=== PATIENT | male | born 1980 | race Caucasian/White ===

== ENCOUNTER 2016-08-21 19:06 | Emergency (ER) | payer SELFPAY ==
--- NOTE | 2016-08-21 19:08 | EDPHY ---
HPI/HX/ROS/PE/MDM Narrative: CHIEF COMPLAINT: Intoxication HPI: This patient is an intoxicated 36-year-old male arriving by EMS with [employer] after he was found passed out on the toilet at [facility]. [employer] reports that he was confused and unable to answer simple questions upon their arrival. Per EMS, he has been somnolent in transport but responsive to commands. When asked what substances he consumed tonight, he does not provide a response. Further history is unobtainable secondary to the patient's intoxicated condition. REVIEW OF SYSTEMS: ROS is unobtainable secondary to the patient's intoxicated condition. PMH: Non-contributory. SOCIAL HISTORY: Non-contributory. PHYSICAL EXAM: General:Patient is drowsy, in no acute distress. ENT:Pupils 6mm bilaterally. ENT inspection normal. Neck: Normal inspection. Full range of motion. Respiratory:No respiratory distress. Breath sounds normal bilaterally. Cardiovascular: Regular rate and rhythm. Strong peripheral pulses. Normal cap refill. Abdomen:The abdomen is nontender to palpation. There are no peritoneal signs. There are normal bowel sounds. Back: Normal to inspection. No tenderness to palpation. Skin: Normal color. No rash. Warm and dry. Extremities: Normal appearance. Full range of motion. Neuro: Follows commands intermittently. Normal motor function. Normal sensory function. ED Course: This 36-year-old male presents via EMS with [employer] after he was found unresponsive in the bathroom of [facility]. He is somnolent and responsive to commands intermittently. Pupils are 6mm bilaterally. Suspected ETOH and/or substance abuse. Will proceed with labs, ETOH screen, and serial examinations here in the ED. ETOH level 298. 2245: The patient has passed road test and is able to walk appropriately around the department. He will be discharged directly to the [facility] for alcohol detox. He is given return to the ED precautions prior to discharge. - Data Points Laboratory Results: Laboratory Results 08/21/16 19:10 08/21/16 19:10 08/21/16 08/21/16 19:10 19:10 WBC 8.46 10^3/uL 10^3/uL (3.80-9.50) RBC 4.77 10^6/uL 10^6/uL (4.40-6.38) Hgb 15.5 g/dL g/dL (13.7-17.5) Hct 44.1 % % (40.0-51.0) MCV 92.5 fL fL (81.5-99.8) MCH 32.5 pg pg (27.9-34.1) MCHC 35.1 g/dL g/dL (32.4-36.7) RDW 14.1 % % (11.5-15.2) Plt Count 213 10^3/uL 10^3/uL (150-400) MPV 9.8 fL fL (8.7-11.7) Neut % (Auto) 33.5 % L % (39.3-74.2) Lymph % (Auto) 55.0 % H % (15.0-45.0) [place] % (Auto) 7.9 % % (4.5-13.0) Eos % (Auto) 2.7 % % (0.6-7.6) Baso % (Auto) 0.7 % % (0.3-1.7) Nucleat RBC Rel Count 0.0 % % (0.0-0.2) Absolute Neuts (auto) 2.83 10^3/uL 10^3/uL (1.70-6.50) Absolute Lymphs (auto) 4.65 10^3/uL H 10^3/uL (1.00-3.00) Absolute Monos (auto) 0.67 10^3/uL 10^3/uL (0.30-0.80) Absolute Eos (auto) 0.23 10^3/uL 10^3/uL (0.03-0.40) Absolute Basos (auto) 0.06 10^3/uL 10^3/uL (0.02-0.10) Absolute Nucleated RBC 0.00 10^3/uL 10^3/uL (0-0.01) Immature Gran % 0.2 % % (0.0-1.1) Immature Gran # 0.02 10^3/uL 10^3/uL (0.00-0.10) Sodium 141 mEq/L mEq/L (134-144) Potassium 4.1 mEq/L mEq/L (3.5-5.2) Chloride 102 mEq/L mEq/L (97-110) Carbon Dioxide 22 mEq/l mEq/l (22-31) Anion Gap 17 mEq/L H mEq/L (8-16) BUN 8 mg/dL mg/dL (7-23) Creatinine 0.9 mg/dL mg/dL (0.7-1.3) Estimated GFR > 60 Glucose 87 mg/dL mg/dL (70-100) Calcium 9.1 mg/dL mg/dL (8.5-10.4) Ethyl Alcohol 298 mg/dL H mg/dL (0-10) General Initial Vital Signs: Initial Vital Signs Temperature (C) 37.2 C 08/21/16 19:18 Heart Rate 86 08/21/16 19:18 Respiratory Rate 20 08/21/16 19:18 Blood Pressure 112/76 08/21/16 19:18 O2 Sat (%) 93 08/21/16 19:18 O2 Delivery Mode Room Air Allergies/Adverse Reactions: No Known Allergies Allergy (Unverified 08/21/16 19:17) Home Medications: Medication Instructions Recorded NK [No Known Home Meds] 08/21/16 Departure - Departure Disposition: Home, Routine, Self-Care Clinical Impression: Alcoholic intoxication Qualifiers: Complication of substance-induced condition: uncomplicated Qualified Code(s): F10.120 - Alcohol abuse with intoxication, uncomplicated Condition: Good Instructions: Alcohol Intoxication (ED) Additional Instructions: 1. Please refrain from abusing alcohol. 2. Should you wish to detox from chronic alcohol abuse, please present to the [facility]. 3. Return to the emergency department immediately for fever, vomiting, confusion , headache, abdominal pain or other worsening of condition. Referrals: [facility] 24 Hours [Outside] - As per Instructions Report Scribed for: Steven Keating Report Scribed by: Yoly Casas Date of Report: 08/21/16 Time of Report: 19:08 Physician Review and Approval Statement: Portions of this note were transcribed by an ED scribe. I personally performed the history, physical exam, and medical decision making; and confirm the accuracy of the information in the transcribed note.
[2016-08-21 19:19] VITALS: TEMP 99
[2016-08-21 19:24] LABS: % IMMATURE GRANULYOCYTES 0.2 % (0.0-1.1); ABSOLUTE IMMATURE GRANULOCYTES 0.02 10^3/uL (0.00-0.10); ADD DIFF? NO; ADD MORPH? NO; ADD SCAN? NO; ATYPICAL LYMPHOCYTE FLAG 0 (0-99); FRAGMENT RBC FLAG 0 (0-99); HEMATOCRIT 44.1 % (40.0-51.0); HEMOGLOBIN 15.5 g/dL (13.7-17.5); LEFT SHIFT FLG 0 (0-99); LIPEMIA HEMOLYSIS FLAG 90 (0-99); MEAN CELL HEMOGLOBIN 32.5 pg (27.9-34.1); MEAN CELL HEMOGLOBIN CONCENTR. 35.1 g/dL (32.4-36.7); MEAN CELL VOLUME 92.5 fL (81.5-99.8); MEAN PLATELET VOLUME 9.8 fL (8.7-11.7); PLATELET CLUMPS FLAG 20 (0-99); PLATELET COUNT 213 10^3/uL (150-400); RED BLOOD CELL COUNT 4.77 10^6/uL (4.40-6.38); RED CELL DISTRIBUTION WIDTH 14.1 % (11.5-15.2)
[2016-08-21 20:14] LABS: ANION GAP 17 mEq/L (8-16); CALCIUM 9.1 mg/dL (8.5-10.4); CARBON DIOXIDE 22 mEq/l (22-31); CHLORIDE 102 mEq/L (97-110); CREATININE 0.9 mg/dL (0.7-1.3); ETHANOL SERUM 298 mg/dL (0-10); GLOMERULAR FILTRATION RATE > 60; GLUCOSE 87 mg/dL (70-100); POTASSIUM 4.1 mEq/L (3.5-5.2); SODIUM 141 mEq/L (134-144)
[2016-08-21 22:08] VITALS: RESP 16
[2016-08-21] MEDS ORDERED: CHLORDIAZEPOXIDE 25MG PREPK#6 BTL TAKEHOME ONE ×2 (23:10→23:11)
[2016-08-21 23:20] VITALS: BP 128/76; PULSE 88; O2SAT 94
== END 2016-08-21 23:19 | disposition home or self-care (01) ==
DX: F10.120 Alcohol abuse with intoxication, uncomplicated (principal)
CPT/HCPCS: G0480

== ENCOUNTER 2016-09-13 20:00 | Emergency (ER) | payer SELFPAY ==
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
[2016-09-13 20:16] VITALS: PULSE 80; RESP 14; TEMP 98.4; O2SAT 94
[2016-09-13 20:40] LABS: ETHANOL SERUM 397 mg/dL (0-10)
[2016-09-13 21:49] VITALS: BP 118/77
== END 2016-09-13 21:48 | disposition home or self-care (01) ==
LOC: EDUNIT#
DX: F10.129 Alcohol abuse with intoxication, unspecified (principal); F17.200 Nicotine dependence, unspecified, uncomplicated
CPT/HCPCS: G0480

== ENCOUNTER 2016-10-16 17:54 | Emergency (ER) | payer SELFPAY ==
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
[2016-10-16 18:07] LABS: % IMMATURE GRANULYOCYTES 0.4 % (0.0-1.1); ABSOLUTE IMMATURE GRANULOCYTES 0.02 10^3/uL (0.00-0.10); ADD DIFF? NO; ADD MORPH? NO; ADD SCAN? NO; ATYPICAL LYMPHOCYTE FLAG 10 (0-99); FRAGMENT RBC FLAG 0 (0-99); HEMATOCRIT 39.6 % (40.0-51.0); LEFT SHIFT FLG 0 (0-99); LIPEMIA HEMOLYSIS FLAG 90 (0-99); MEAN CELL HEMOGLOBIN 35.9 pg (27.9-34.1); MEAN CELL HEMOGLOBIN CONCENTR. 35.4 g/dL (32.4-36.7); MEAN CELL VOLUME 101.5 fL (81.5-99.8); MEAN PLATELET VOLUME 10.2 fL (8.7-11.7); PLATELET CLUMPS FLAG 0 (0-99); PLATELET COUNT 118 10^3/uL (150-400)
[2016-10-16 18:30] LABS: ANION GAP 19 mEq/L (8-16); CALCIUM 8.4 mg/dL (8.5-10.4); CARBON DIOXIDE 17 mEq/l (22-31); CHLORIDE 113 mEq/L (97-110); CREATININE 0.9 mg/dL (0.7-1.3); GLOMERULAR FILTRATION RATE > 60; GLUCOSE 82 mg/dL (70-100); SODIUM 149 mEq/L (134-144)
[2016-10-16 18:42] LABS: ETHANOL SERUM 468 mg/dL (0-10)
[2016-10-16 21:42] VITALS: BP 128/74; PULSE 70; RESP 14; TEMP 98.4; O2SAT 93
== END 2016-10-16 21:40 | disposition home or self-care (01) ==
LOC: EDUNIT#
DX: F10.120 Alcohol abuse with intoxication, uncomplicated (principal)
CPT/HCPCS: G0480